=== PATIENT | female | born 1980 | race Caucasian/White ===

== ENCOUNTER 2016-11-16 11:37 | Inpatient (IN) | payer OTHER ==
[2016-11-16] VITALS (12 sets, daily range): BP systolic 104–139; BP diastolic 57–74; PULSE 65–109; RESP 16–25; O2SAT 98–100
[~2016-11-16] VITALS: Ht 172.7 cm; Wt 61.4 kg
[2016-11-16] MEDS ORDERED: 0.9% Sodium Chloride 1,000 ML IV ONE (11:52)
[2016-11-16] MEDS ORDERED: Ketorolac 30 mg/mL 2 mL Inj IM ONE (11:55)
[2016-11-16] MEDS ORDERED: Ondansetron 2 mg/mL 2 mL Inj IVPUSH ONE (11:55)
--- NOTE | 2016-11-16 11:59 | ED.REPORT ---
HPI-Abd Pain F Under 40 Date of Service Nov 16, 2016 ED Provider: Trevor Taveras PA-C Jacy is an otherwise healthy 36-year-old female presents with chief complaint of right lower quadrant pain. She states the pain began yesterday around her bellybutton, and has migrated to her right lower quadrant today, becoming significantly more severe. Admits anorexia, nausea, chills. States there is a chance she is . Denies fevers, vomiting, diarrhea, melena, hematochezia , constipation, hematuria, frequency, urgency, dysuria, vaginal bleeding/ discharge. Denies history of appendectomy. States has been more than 24 hours since she last ate solid food and admits to consuming 8 ounces of water at 0730 this morning. Nursing Notes Stated Complaint: STOMACH PAIN Chief Complaint: Female Abdominal Pain Nursing Notes Reviewed: Yes Allergies: Coded Allergies: Penicillins (Unverified Allergy, Unknown, mom and brother are both allergic, 11/16/16) gluten (Verified Adverse Reaction, Intermediate, Abdominal Pain, 11/16/16) Scheduled Ascorbic Acid (Vitamin C) 1,000 Mg Tab.chew 1,000 MG PO DAILY Multivitamin (Once Daily) 1 Each Tablet 1 EACH PO DAILY General Time Seen by MD: 11:43 Chief Complaint Abdominal pain Past Medical History Past Medical History Denies Review of Systems Negative unless stated otherwise in history of present illness Physical Exam General: Uncomfortable appearing, well developed, well nourished, mild to moderate distress. Head: Atraumatic, normocephalic. Eyes: No scleral icterus or injection. No discharge. Vision grossly intact. ENT: Voice clear, hearing grossly intact. Respiratory: Regular rate and rhythm. Breath sounds present, clear to auscultation and equal bilaterally. No respiratory distress. No increased work of breathing, speaks in complete sentences. Cardiovascular: Mildly tachycardic with regular rhythm, without murmur, gallop or rub. No pedal edema. Gastrointestinal: Abdomen flat and normal to inspection. Significant right lower quadrant tenderness with rebound. Positive Rovsing sign in right upper quadrant. Mild psoas and obturator sign Skin: Warm and dry. Neurological: Grossly nonfocal. Psychological: Alert and oriented. Speech appropriate, linear and logical. Behavior appropriate. Initial Vital Signs Vital Signs (First) Date Time Temp Pulse Resp B/P Pulse Ox O2 Delivery O2 Flow Rate FiO2 11/16/16 11:40 37.2 109 18 128/74 100 Room Air Interpretation & Diagnostics Interpretation & Diagnostics: Leukocytosis at 24.8 with a left shift. Mild anemia PROCEDURE: US APPENDIX INDICATIONS: right lower quadrant pain TECHNIQUE: Real-time focused scanning was performed of the abdomen with attention to the appendix, with image documentation. COMPARISON: None. FINDINGS: Appendix visualization: Well-visualized appendix. Appendix measurements: 14.8 mm Associated findings: Echogenic fat: Present. Appendiceal compressibility: Absent. Appendicoliths: Absent. Nearby free fluid: Present. Lymphadenopathy: Absent. Tenderness on exam: Is apparent IMPRESSION: Findings consistent with acute appendicitis. Lab Results Interpretation Result Diagram: 11/16/16 1230 11/16/16 1230 Test 11/16/16 12:30 11/16/16 12:32 11/16/16 13:14 11/16/16 15:01 White Blood Count 24.8th/mm3 (3.8-10.1) Red Blood Count 4.13mil/mm3 (3.90-5.20) Hemoglobin 11.4g/dL (12.0-15.6) Hematocrit 34.3% (35.0-46.0) Mean Corpuscular Volume 83.1fL (81-100) Mean Corpuscular Hemoglobin 27.6pg (27.0-35.0) Mean Corpuscular Hemoglobin Concent 33.2% (32.0-37.0) Red Cell Distribution Width 15.1% (12.3-15.4) Platelet Count 288bil/L (150-400) Neutrophils (%) (Auto) 85.7% (40-74) Lymphocytes (%) (Auto) 4.7% (14-46) Monocytes (%) (Auto) 9.1% (4-12) Eosinophils (%) (Auto) 0% (0-5) Basophils (%) (Auto) 0.1% (0-3) Sodium Level 132mEq/L (134-144) Potassium Level 4.0mEq/L (3.5-5.2) Chloride Level 95mEq/L (97-108) Carbon Dioxide Level 24mmol/L (18-29) Blood Urea Nitrogen 6mg/dL (6-20) Creatinine 0.56mg/dL (0.57-1.00) Estimat Glomerular Filtration Rate 176mL/min (>59) Glucose Level 127mg/dL (60-99) Lactic Acid Level 1.4mmol/L (0.4-2.0) Calcium Level 9.4mg/dL (8.5-10.1) Total Bilirubin 0.6mg/dL (0.0-1.2) Aspartate Amino Transf (AST/SGOT) 17U/L (0-50) Alanine Aminotransferase (ALT/SGPT) 9U/L (0-32) Alkaline Phosphatase 74U/L (25-150) Total Protein 7.5g/dL (6.4-8.4) Albumin 4.4g/dL (3.4-5.0) HCG Beta Subunit < 0.500mIU/mL Hold Gamino Top Tube Received (Received) Hold Urine Received (Received) CT Abd / Pelvis Interpretation PROCEDURE: CT ABDOMEN AND PELVIS WITH CONTRAST ([id number]) INDICATIONS: right lower quadrant pain IMPRESSION: Definite appendicitis with periappendiceal fluid and no free air seen. Free fluid in cul-de-sac and pelvis Question of abscess pelvis which is abnormal ovarian cysts or endometriomas. US Focused non-OB Pelvis PROCEDURE: US PELVIC SONOGRAM + TRANSVAGINAL SONOGRAM INDICATIONS: possible tuboovarian abscess vs appendicitis IMPRESSION: 1. Uterus multiple fibroids is considered normal. 2. Abnormal and enlarged ovaries with complex cysts some of which have a homogeneous echo pattern suspicious for endometriosis. In addition in the right adnexa is a complex mass possibly an endometrioma. Differential for this exam clinical history would be abscess. Endometriosis is suspected an MRI to evaluate for lesions scattered throughout the pelvis may be useful. If tubo-ovarian abscess is suspected clinically then a CT scan may be useful to evaluate for possible percutaneous drainage. Re-Eval/Medical Decision Re-Evaluation/Progress : Time of Eval: 12:57 Re-Evaluation/Progress Note: Patient reports pain is improved at 6/10. She does not wish to have more pain medication. Consultation #1: Referral / Consult Name: Mack Galo MD Requested Call at: 12:57 Call Returned at: 12:57 Open Shank Coverer: Will see patient Consultation #2: Referral / Consult Name: Mack Galo MD Consulted With: Surgeon Call Returned at: 13:22 Note: Dr. Galo met with and examined the patient. He is mildly concerned about PID due to the very high white count. Requested that I ask for a WASTEWATER ANALYST LAB ANALYST consult. Consultation #3: Referral / Consult Name: Larry Buchanan MD Requested Call at: 13:23 Call Returned at: 13:45 Open Shank Coverer: Will see patient Consultation #4: Referral / Consult Name: Deloris Koenig MD Call Returned at: 16:36 Note: Inform Dr. Al of preliminary ultrasound of result showing right ovarian abscess and appendicitis. She asked that I inform Dr. Galo. States that she has replaced the patient on antibiotics and no change. Consultation #5: Referral / Consult Name: Mack Galo MD Consulted With: Surgeon Call Returned at: 16:37 Open Shank Coverer: Will see patient Note: Informed Dr. Galo of preliminary ultrasound results. He will see the patient after his current procedure. Consultation #6: Referral / Consult Name: Mack Galo MD Consulted With: Surgeon Call Returned at: 17:53 Note: Dr. Bautista reviewed ultrasound results. Finds them equivocal for appendicitis. Requests that I order a CT abdomen and pelvis with and without contrast. Consultation #7: Referral / Consult Name: Mack Galo MD Consulted With: Surgeon Note: CT results indicate appendicitis. Dr. Galo will admit the patient to surgery Discharge & Departure Primary Impression: Appendicitis Appendicitis type: acute appendicitis Acute appendicitis type: unspecified acute appendicitis type Qualified Code: K35.80 - Unspecified acute appendicitis Disposition: ADMITTED TO HOSPITAL EDSupervising Provider for APC: Jose Suárez MD, Seth PA-C Nov 16, 2016 11:59
[2016-11-16 12:37] LABS: BASOPHILS % (AUTO) 0.1 % (0-3); EOSINOPHILS % (AUTO) 0 % (0-5); MONOCYTES % (AUTO) 9.1 % (4-12); Mean Corpuscular Hemoglobin 27.6 pg (27.0-35.0); Mean Corpuscular Volume 83.1 fL (81-100); NEUTROPHILS % (AUTO) 85.7 % (40-74); Platelet Count 288 bil/L (150-400)
[2016-11-16] MEDS ORDERED: MULT-666 PO (13:22)
[2016-11-16] MEDS ORDERED: ASCO100089 PO (13:22)
--- NOTE | 2016-11-16 14:16 | HP ---
[address] [address] HISTORY AND PHYSICAL PATIENT: DARREN DIAZ : 1980 MR#: [id number] ADMIT: 11/16/2016 JOB ID: [id number] CHIEF COMPLAINT/IDENTIFICATION: I have been asked by Trevor Taveras to see this woman in consultation regarding possible appendicitis. HISTORY OF PRESENT ILLNESS: The patient reports abdominal pain for approximately just under 24 hours beginning around her umbilicus and migrating down her right lower quadrant with anorexia, nausea, chills. She denies vaginal discharge of any significance, dysuria. PAST MEDICAL HISTORY: Unremarkable. MEDICATIONS: None. ALLERGIES: PENICILLIN, VITAMINS. SOCIAL HISTORY: , negative tobacco. Negative daily alcohol. FAMILY HISTORY/REVIEW OF SYSTEMS: Negative. PHYSICAL EXAMINATION: Slender woman, looking uncomfortable but in no acute distress. Temperature is recorded at 37.2, pulse is 109, blood pressure is 128/74. She is in the room with her . Neck is supple. No cervical adenopathy. Breasts are not examined. Lungs are clear. Heart sounds are regular. She has a right-sided tenderness to palpation midway between the pubis and McBurney point, no tenderness on the left. LABORATORY DATA: Her white count is 24.8, her hematocrit is 34.3. Chemistries are slightly abnormal with a sodium of 132 and a chloride of 95. Her glucose is 127. Lactic acid is 1.4. IMAGING: She has had an appendix ultrasound with a preliminary reading of complete visualization of the appendix as a noncompressible tube 14+ mm in diameter without an appendicolith. No mention is made of fluid or other adenopathy. I have reviewed the worksheet and the ultrasound films themselves and we are waiting official report. IMPRESSION AND PLAN: A 36-year-old healthy woman with possible appendicitis. Her history is most consistent with appendicitis but her white blood cell count is fairly high for appendicitis. I am concerned about the possible diagnosis of pelvic inflammatory disease or tubo-ovarian abscess. Having considered the options what I would like to do is have ABSTRACT WRITER see her including performance of a bimanual examination as well as await the official ultrasound reading.
--- NOTE | 2016-11-16 14:33 | DRSVH ---
PROCEDURE: US APPENDIX INDICATIONS: right lower quadrant pain TECHNIQUE: Real-time focused scanning was performed of the abdomen with attention to the appendix, with image do cumentation. COMPARISON: None. FINDINGS: Appendix visualization: Well-visualized appendix. Appendix measurements: 14.8 mm Associated findings: Echogenic fat: Present. Appendiceal compressibility: Absent. Appendicoliths: Absent. Nearby free fluid: Present. Lymphadenopathy: Absent. Tenderness on exam: Is apparent IMPRESSION: Findings consistent with acute appendicitis. Trevor Taveras given results by the plate stacker hand at 1300 hrs. 11/16/2016 Dictated by: Jere MONTES DE OCA Interpreted: Marina Castaneda MD on 11/16/2016 at 14:31 Transcribed by: TAYLER on 11/16/2016 at 14:33 Approved by: Marina Castaneda MD, PhD on 11/16/2016 at 16:58
[2016-11-16] MEDS ORDERED: Cefotetan Inj 2,000 MG in IV Premix 1 EACH IV SCH (16:19)
--- NOTE | 2016-11-16 16:43 | CONS ---
[address] [address] CONSULTATION REPORT PATIENT: DARREN DIAZ : 1980 MR#: [id number] ADMIT: 11/16/2016 JOB ID: [id number] DATE OF SERVICE: 11/16/2016 REASON FOR CONSULTATION: Abdominal pain. Possible appendicitis. To rule out possible pelvic inflammatory disease. HISTORY OF PRESENTING ILLNESS: This is a [id number]-[id number] zero para zero with last menstrual period of October 31, 2016, presented with one and half a day history of abdominal pain that started at the mid abdomen, around the umbilicus and the lower abdomen, and then the pain moved to the right lower quadrant earlier this morning. History of nausea. No vomiting. Last bowel movement was last night. No history of constipation. No history of fever. The pain started gradually to increase to a 7/10 at its max. Now patient rates the pain to be 5/10 after receiving IV pain medications. The patient denies history of pelvic infection and no history of gonorrhea, chlamydia, or vaginitis. No history of vaginal discharge. No urinary symptoms. Not on control. GYNECOLOGIC HISTORY: Menarche at age 14. Menstrual cycle was irregular up to the last one and half year when she switched to gluten free diet. Now her menses are regular every month, last for a week, with mild dysmenorrhea resolved with [id number]-[id number] pain medications. Last Pap smear was one and half years ago and it was within normal limits. No history of abnormal Pap smears. No history of STI. PAST MEDICAL HISTORY: Noncontributory. PAST SURGICAL HISTORY: Negative. SOCIAL HISTORY: Denies smoking, alcohol, or illicit drug abuse. FAMILY HISTORY: Mother is healthy. Father with a history of dyslipidemia, possible hypertension. Brother is healthy. Cancer: Great grandfather unknown primary cancer. ALLERGY: 1. Penicillin for possible allergy, as mother and brother are both allergic to penicillin and they react with hives. The patient never had antibiotics before. 2. Gluten. No confirmation test was done. The patient avoids gluten by choice with improvement in symptoms. MEDICATIONS: Ibuprofen p.r.n. for pain. PHYSICAL EXAMINATION: Vital signs: Temperature 37.8 degrees centigrade. Patient reports a T-max of 98.4 at home. Pulse 109 on presentation and now down to 95. Respiratory rate 20. Blood pressure 128/74 at presentation and now 104/61. Pulse oximetry 100% on room air. General: Alert. Oriented to time, place, and person. Head: Normocephalic, atraumatic. Eyes: Grossly normal. ENT: Oral membranes moist. Neck: Supple. Chest: Equal air entry bilaterally. No added sounds. Cardiovascular: S1 plus S2 plus zero. Regular rate and rhythm. Abdomen: Tubes in place. Soft, with localized tenderness in the right lower quadrant. No guarding, no rigidity. Pelvic: External genitalia normal. Normal urethra and glands. Normal vagina. Cervix with mild erythema and some nabothian glands. Normal appearance of discharge. Bimanual exam: No cervical motion tenderness. No uterine tenderness. Positive right adnexal region tenderness. Tenderness more evident by abdominal palpation then pelvic palpation. No palpable masses. The left adnexal region: No tenderness and no palpable masses. Lower extremities: Palpable pulse bilaterally and no edema. LABORATORIES: White blood cells 24.8, hemoglobin 11.4, hematocrit 34.3. Neutrophils 85.7%. Sodium 132, potassium 40, chloride 95, bicarb 24, BUN 6, creatinine 0.56, and glucose 127. Lactic acid 1.4. Calcium 9.4, AST 17, ALT 9, alkaline phosphatase 74. Beta hCG pending. IMAGING: Abdominal ultrasound was performed with findings consistent with acute appendicitis. ASSESSMENT: This is a 36-year-old G0 with 1-1/2 day history of right lower quadrant pain. PID is unlikely but cannot be completely ruled out. PLAN: Pelvic ultrasound ordered and will start treatment for possible PID pending GC and chlamydia swabs and pending test. Impression and plan was discussed with Dr. Galo, who is admitting the patient for possible appendicitis, and will be available for consult as needed. MARTI
--- NOTE | 2016-11-16 17:40 | DRSVH ---
PROCEDURE: US PELVIC SONOGRAM + TRANSVAGINAL SONOGRAM INDICATIONS: possible tuboovarian abscess vs appendicitis TECHNIQUE: Real-time scanning was performed of the pelvic organs, with image documentation. Additional endovagi nal scanning was necessary due to incomplete visualization of the adnexal and endometrial structures by transabdominal scanning. COMPARISON: None. FINDINGS: Transabdominal scanning: Limited scanning through the kidneys shows no hydronephrosis. No pathologi c free abdominal or pelvic fluid. Endovaginal scanning: Uterus: Uterus is normal in size at 9.4 x 5.6 x 4.6 cm. The endometrium measures 14 mm in combined thickness. There are at least 3 fibroids. One in the anterior aspect of the midbody and the subseros al area measures 26 x 24 x 25 mm. A second on the right anterior aspect of the uterus in the subseros al area measures 32 x 23 x 20 mm. A third in the posterior mid body myometrium is 9 x 6 x 6 mm. Ovaries: The right ovary is enlarged and measures 62 x 43 x 25 mm. This is secondary to multiple cyst s largest measures 26 x 17 x 23 mm. In addition in the right adnexa is a complex lesion measuring 65 x 61 x 42 mm with a homogeneous echo pattern is suspicious for endometrioma. The left ovary is enlarged and measures 57 x 45 x 36 mm with multiple complex cysts. Several areas in the region of the left ovary and a very homogeneous echotexture suspicious for endometrioma as well. There is a moderate amount of free fluid in the cul-de-sac. This has a complex appearance to it sugge sting possible blood or infection. IMPRESSION: 1. Uterus multiple fibroids is considered normal. 2. Abnormal and enlarged ovaries with complex cysts some of which have a homogeneous echo pattern naresh picious for endometriosis. In addition in the right adnexa is a complex mass possibly an endometrioma . Differential for this exam clinical history would be abscess. Endometriosis is suspected an MRI to evaluate for lesions scattered throughout the pelvis may be useful. If tubo-ovarian abscess is suspected clinically then a CT scan may be useful to evaluate for possible percutaneous drainage. Dictated by: Wesley Person M.D. on 11/16/2016 at 17:34 Approved by: Wesley Person M.D. on 11/16/2016 at 17:38
[2016-11-16] MEDS ORDERED: Iohexol 300 mg/mL 30 mL Inj PO ONE (17:50)
--- NOTE | 2016-11-16 20:11 | DRSVH ---
PROCEDURE: CT ABDOMEN AND PELVIS WITH CONTRAST (PNL-7102) INDICATIONS: right lower quadrant pain TECHNIQUE: After the administration of oral and intravenous contrast, 5 mm thick sections acquired from the diap hragms to the symphysis. 5 mm thick coronal and sagittal reformats were performed. For radiation do se reduction, the following was used: automated exposure control, adjustment of mA and/or kV accordi ng to patient size. COMPARISON: None. FINDINGS: Image quality: Excellent. ABDOMEN: Lung bases: Lung bases are clear. Heart size is normal. Solid organs: Liver and spleen are normal in size and enhancement. Gallbladder is within normal forbes its.. Biliary system is non-dilated. Pancreas enhances normally. No adrenal nodules. Kidneys are normal in size and enhancement, without hydronephrosis. Peritoneum and bowel: Stomach, small bowel, and colon loops are normal in caliber and wall thickness . The appendix is definitely abnormal with multiple stones, enlargement, enhancement, parie appendic eal stranding and fluid some free fluid in the paracolic gutter and retrocecal area. There is also fl uid extending along the appendix in from its tip down into the cul-de-sac is free fluid. There are lo culated fluid collections. Some of these are prominent ovarian cystic structures seen on ultrasound. The troublesome. As on series 2 image 69. This fluid collection of approximately 5.3 cm size is poten tially abscess or complex ovarian cyst or endometrioma. Nodes and vessels: No retroperitoneal or mesenteric adenopathy. Aorta and inferior vena cava are no rmal in caliber. Miscellaneous: No ventral hernias. PELVIS: Genitourinary: Bladder wall thickness is normal. Miscellaneous: No inguinal hernias or adenopathy. Bones: No suspicious bony lesions. No vertebral body compression fractures. IMPRESSION: Definite appendicitis with periappendiceal fluid and no free air seen. Free fluid in cul-de-sac and pelvis Question of abscess pelvis which is abnormal ovarian cysts or endometriomas. Dictated by: Wesley Person M.D. on 11/16/2016 at 20:02 Approved by: Wesley Person M.D. on 11/16/2016 at 20:10
[2016-11-16] MEDS ORDERED: Cefotetan Inj 2,000 MG in IV Premix 1 EACH IV ONE (20:25)
[2016-11-16] MEDS ORDERED: Lactated Ringer's 500 ML IV PRN (20:34)
[2016-11-16] MEDS ORDERED: Lactated Ringer's 1,000 ML IV SCH (20:34)
--- NOTE | 2016-11-16 20:34 | PCM.HPANE ---
Patient Data Surgeon Admitting Provider: Attending Provider: Primary Care Physician:Candy Other Provider: Reason for Visit Stomach Pain Ht/WT & BMI Height (Feet): 5 Height (Inches): 8 Weight (Kilograms): 61.36 Body Mass Index Allergies Coded Allergies: Penicillins (Unverified Allergy, Unknown, mom and brother are both allergic, 11/16/16) gluten (Verified Adverse Reaction, Intermediate, Abdominal Pain, 11/16/16) Past Anesthesia History Anesthesia History: Denies:: Anesthesia Reactions Diabetes History Hx Diabetes?: No MRSA MRSA: No Medications Hypertension Medication: No Home Meds Incl Beta Terrell: No Reported Medications Ascorbic Acid (Vitamin C)1,000 Mg Tab.chew1,000 Mg PO DAILY Ref 0 11/16/16 Multivitamin (Once Daily)1 Each Tablet1 Each PO DAILY 11/16/16 History History of ENT Problems?: No Hx of Heart Problems?: No Cardiovascular History: Denies:: Congestive Heart Failure Hypertension Hx of Respiratory Problem?: No Respiratory History: Denies:: Tuberculosis Hx Neurologic Problems?: No Hx of GI Problems?: No Hx of Problems?: No Female Hx: Denies:: Currently Endometriosis Pelvic Inflammatory Problems with Breasts? Hx Musculoskeletal Problems?: No Hx of Psycho/Social Problems?: No Hx Surgeries?: No Hx Any Other Health Problems?: No Other History: Denies:: Cancer Hospitalization Thyroid Disease Hx Diabetes: No Hx Alcohol Use: NoHx Substance Use: NoHave You Smoked inLast 12 mo: No Stop/Bang Treated for Sleep Apnea?: No Do You Have a CPAP Machine?: No S-Snoring: Do You Snore Loudly: No T-Tired: feel tired, fatigued: No O-Obsered: Observed not breath: No P-Blood Pressure: treated: No B- Body Mass Index > 35 kg/m2: No A- Age over 50: No N- Neck Large Circumference: No G- Gender Male: No PATRICIA Total Score: 0 PATRICIA Risk Assessment: Low Risk, <3 Yes Risk Assessment Category Category 1A: Patient has history of documented sleep apnea, and HAS NOT received any narcotic, sedative or anesthesia administration during this stay. Category 1B: Patient has history of documented sleep apnea, and HAS received any narcotic , sedative or anesthesia administration during this stay Category 2: Patient has SUSPECTED Obstructive Sleep Apnea, and HAS received any narcotic , sedative or anesthesia administration during this stay. Category 3: Patient has SUSPECTED Obstructive Sleep Apnea and HAS NOT received narcotic, sedative or anesthesia administration during this stay. Category 4: Outpatient in Procedural Areas with known sleep apnea or who screen positive for High Risk via the STOP/BANG questionnaire. Exam Exam Vital Signs Vital Signs Date Time Temp Pulse Resp B/P Pulse Ox O2 Delivery O2 Flow Rate FiO2 11/16/16 20:29 37.9 101 20 129/73 100 Room Air 11/16/16 16:25 37.9 65 20 115/69 99 Room Air 11/16/16 14:01 37.8 95 20 104/61 100 Room Air General Appearance: Oriented X3 HEENT/AIRWAY: MP 2 Lungs: Normal Air Movement Heart: Regular Rate/Rhythm Meds/Labs/Diagnostics Admission Meds Current Medications Sodium Chloride (Normal Saline) 1,000 ml @ 0 mls/hr Q0M ONCE IV Last administered on 11/16/16 12:10; Start 11/16/16 at 11:52; Stop 11/16/16 at 11:54; Status DC Ondansetron HCl (Zofran Inj) 8 mg ONCE ONCE IVPUSH Last administered on 12:10; Start 11/16/16 at 11:55; Stop 11/16/16 at 11:56; Status DC Ketorolac Tromethamine 30 mg 30 mg ONCE ONCE IVPUSH Last administered on 12:10; Start 11/16/16 at 12:00; Stop 11/16/16 at 12:01; Status DC Cefotetan Disodium/Dextrose/ Premix (Cefotan Inj/IV Premix) 50 ml @ 100 mls/hr Q12 IV Last administered on 11/16/16 16:36; Start 11/16/16 at 16:19 Iohexol (Omnipaque-300 Inj) 9,000 mg ONCE ONCE PO Last administered on 18:40; Start 11/16/16 at 17:50; Stop 11/16/16 at 17:52; Status DC Labs Test 11/16/16 12:30 11/16/16 12:32 11/16/16 13:14 11/16/16 15:01 White Blood Count 24.8th/mm3 (3.8-10.1) Red Blood Count 4.13mil/mm3 (3.90-5.20) Hemoglobin 11.4g/dL (12.0-15.6) Hematocrit 34.3% (35.0-46.0) Mean Corpuscular Volume 83.1fL (81-100) Mean Corpuscular Hemoglobin 27.6pg (27.0-35.0) Mean Corpuscular Hemoglobin Concent 33.2% (32.0-37.0) Red Cell Distribution Width 15.1% (12.3-15.4) Platelet Count 288bil/L (150-400) Neutrophils (%) (Auto) 85.7% (40-74) Lymphocytes (%) (Auto) 4.7% (14-46) Monocytes (%) (Auto) 9.1% (4-12) Eosinophils (%) (Auto) 0% (0-5) Basophils (%) (Auto) 0.1% (0-3) Sodium Level 132mEq/L (134-144) Potassium Level 4.0mEq/L (3.5-5.2) Chloride Level 95mEq/L (97-108) Carbon Dioxide Level 24mmol/L (18-29) Blood Urea Nitrogen 6mg/dL (6-20) Creatinine 0.56mg/dL (0.57-1.00) Estimat Glomerular Filtration Rate 176mL/min (>59) Glucose Level 127mg/dL (60-99) Lactic Acid Level 1.4mmol/L (0.4-2.0) Calcium Level 9.4mg/dL (8.5-10.1) Total Bilirubin 0.6mg/dL (0.0-1.2) Aspartate Amino Transf (AST/SGOT) 17U/L (0-50) Alanine Aminotransferase (ALT/SGPT) 9U/L (0-32) Alkaline Phosphatase 74U/L (25-150) Total Protein 7.5g/dL (6.4-8.4) Albumin 4.4g/dL (3.4-5.0) HCG Beta Subunit < 0.500mIU/mL Hold Gamino Top Tube Received (Received) Hold Urine Received (Received) Plan Impression Patient chart reviewed, patient interviewed and anesthestic plan with risks, benefits, and alternatives discussed, and informed consent obtained. ASA Physical Status: ASA1 Plus Emergency Anesthetic Plan: GA Bene/Risks/Altern/Consents: Yes HP Complete Prior to Induction: Yes Isaias Farah MD Nov 16, 2016 20:34
[2016-11-16] MEDS ORDERED: fentaNYL-PF 50 mCg/mL 2 mL Inj IVPUSH PRN (20:35)
[2016-11-16] MEDS ORDERED: MetoCLOpramide 5 mg/mL 2 mL Inj IVPUSH PRN (20:35)
[2016-11-16] MEDS ORDERED: Ondansetron 2 mg/mL 2 mL Inj IVPUSH PRN ×2 (20:35→22:05)
[2016-11-16] MEDS ORDERED: Phenylephrine 10,000 mCg/mL Inj IVPUSH PRN (20:35)
[2016-11-16] MEDS ORDERED: HYDROmorphone 1 mg/mL Inj IVPUSH PRN (20:35)
[2016-11-16] MEDS ORDERED: EPHEDrine Sulfate 50 mg/mL Inj IVPUSH PRN (20:35)
[2016-11-16] MEDS ORDERED: Dexamethasone 4 mg/mL Inj IVPUSH PRN (20:35)
[2016-11-16] MEDS ORDERED: CEFOTETAN IV ONE (20:48)
[2016-11-16] MEDS ORDERED: Bupivacaine 0.5% 50 mL Inj INFILTRATE ONE (21:23)
[2016-11-16] MEDS ORDERED: HYDROmorphone 0.5 mg/0.5 mL iSecure Syringe IV PRN (22:05)
[2016-11-16] MEDS ORDERED: diphenhydrAMINE 25 mg Capsule PO PRN (22:05)
--- NOTE | 2016-11-16 22:12 | PCM.ANEP1 ---
Post Anesthesia Phase 1 PACU Phase 1 Assessment Vital Signs Vital Signs Date Time Temp Pulse Resp B/P Pulse Ox O2 Delivery O2 Flow Rate FiO2 11/16/16 22:10 91 20 130/67 100 Simple Mask 8 11/16/16 22:05 77 20 135/68 100 Simple Mask 8 11/16/16 22:02 37.5 92 25 139/71 100 Simple Mask 8 11/16/16 20:29 37.9 101 20 129/73 100 Room Air 11/16/16 16:25 37.9 65 20 115/69 99 Room Air Anesthetic Administered: GA Level of Alertness: Awake, talking Pain: No Nausea or Vomiting: No Oxygen Delivery: Room Air Lungs: Normal Air Movement Isaias Farah MD Nov 16, 2016 22:12
--- NOTE | 2016-11-16 22:13 | PCM.ANEP2 ---
Post Anesthesia Evaluation ASA/CMS Post Anesthesia VS in Patient's Normal Range?: Yes Resp Stable; Airway Patent?: Yes CV Function & Hydration Stable: Yes Mental Status Recovered?: Yes Pain control Satisfactory?: Yes N/V Control Satisfactory?: Yes Isaias Farah MD Nov 16, 2016 22:12
--- NOTE | 2016-11-17 00:58 | NUR ---
Admit to room 246-2 received report from REVERSE LOGISTICS ANALYST BREONNA HARRISON approximately at 2225. pt arrived to room at 2240 via rney with belongings , and family at bedside. pt transferred self from rjermyn to bed by sliding. pt awake; alert and oriented X3. Pt was on 2L O2 on arrival with SPO2 99%. Titrated O2 to 1L with sat 95%. IV saline locked on arrival by REVERSE LOGISTICS ANALYST and no ordered IV fluid. pt tolerating well PO fluid. reported abdominal pain 5/10. administered 5mg oxycodone, it was effective. Dressing C/D/I. oriented pt to room, bed, and call light. will continue to monitor.
--- NOTE | 2016-11-17 01:23 | OP ---
[address] [address] OPERATIVE REPORT PATIENT: DARREN DIAZ : 1980 MR#: [id number] ADMIT: 11/16/2016 JOB ID: [id number] DATE OF SURGERY: 11/16/2016 PREOPERATIVE DIAGNOSIS(ES): 1. Appendicitis. 2. Ovarian cyst. POSTOPERATIVE DIAGNOSIS(ES): 1. Appendicitis. 2. Ovarian cysts with endometrial implants and endometriosis. SURGEON: Mack Galo MD. PROCEDURE: 1. Laparoscopic appendectomy. 2. Biopsy of endometrial implants. INDICATIONS: This is a 36-year-old woman who presented with a one day history of abdominal pain, right lower quadrant tenderness, white count of 25,000 and a radiologic picture of appendicitis versus tubo-ovarian abscess by ultrasound, clarified by CT with clear acute appendicitis and ovarian pathology. She was seen preoperatively by both myself and by FIELD INSPECTOR. She is brought to the operating room for planned laparoscopic appendectomy. She knows that the sewing department supervisor will be present to look at her ovarian pathology, but we have had a discussion that we will plan to simply proceed with appendectomy and only consider drainage of any gynecologic infection that we find, rather than any resection that would be reserved for a separate procedure after she had the opportunity to have a discussion with the sewing department supervisor. FINDINGS: 1. Acute appendicitis without perforation, but with very gangrenous appendicitis in some areas of the appendix. 2. The patient had what appeared to be fairly fresh endometrial implants in the pelvis, in bilateral left and right lower quadrants, and a fair amount in the right upper quadrant with some in the left upper quadrant. 3. She had bilateral ovarian cysts, right greater than left, with the right appearing to be complex, bilobed, and with a central area that had ruptured with chocolate-colored material lining the wall. Dr. Buchanan from Gynecology was present and observed the procedure. 4. Pictures were taken, but there was a problem with the process there and we; therefore, have no photos. DESCRIPTION OF PROCEDURE: The patient was brought to the operating room. General anesthetic was administered. Surgical time-out was followed. SCOAP protocol was followed. She received additional 2 g cefotetan IV. After having the abdomen prepped and draped I sterile fashion and our time-out, we began with local anesthetic and then obtained access with a periumbilical incision and a Veress needle. Optical trocar was placed and we immediately saw a minimal amount of fluid in the pelvis, but brown implants consistent with endometriosis scattered about the pelvis. We inspected all four quadrants and saw that there was staining on the greater omentum with implants on the colon. These all seemed fairly fresh without a great deal of inflammation. We were able to pull some off and sent these for biopsy, labeled as endometrial implants. We turned our attention to the appendix early in the procedure, and identified that it was indeed inflamed but not perforated. We were able to make a window at the base and used the stapler to divide it with the endoscopic stapler. We then took the appendiceal mesentery right at the edge of the appendix and elevated the appendix up. The appendix was markedly thickened and noncompressible and had some areas of gangrene that had some controlled leakage of fluid. The specimen was freed up and then placed in a bag and removed without wound contamination. Dr. Buchanan was present at this point in the operation and we inspected the right ovary and the left ovary. These were quite large with ovarian cysts and what appeared to be a ruptured endometrioma on the right and on the left an enlarged ovarian cyst. Based on our preoperative discussion, we simply elected to now irrigate out any blood and soft material that we could. At this point, as we were removing our ports we found out that the computer that was attached our camera had not processed the photos we had taken of the endometrial implants and the ovaries. Unfortunately, we had no way of recapturing this information. We now proceeded to close the abdomen with 0-Vicryl at the fascia of the larger incision and subcuticular Monocryl otherwise. The patient tolerated the procedure well. At the time of this dictation is awakened from anesthesia. She will be kept on 24 hours of postoperative antibiotics, likely discharged on Sunday. I had a discussion with the regarding the findings of acute appendicitis and second finding of the endometriosis. Dr. Buchanan will speak with the patient and her regarding these implications and any further treatment tomorrow or Sunday.
[2016-11-17 02:51] VITALS: BP 104/61; PULSE 93; RESP 16; O2SAT 99
[2016-11-17 07:37] LABS: BASOPHILS % (AUTO) 0 % (0-3); EOSINOPHILS % (AUTO) 0 % (0-5); MONOCYTES % (AUTO) 6.1 % (4-12); Mean Corpuscular Hemoglobin 27.4 pg (27.0-35.0); Mean Corpuscular Volume 83.8 fL (81-100); NEUTROPHILS % (AUTO) 90.7 % (40-74); Platelet Count 268 bil/L (150-400)
[2016-11-17 07:43] VITALS: BP 115/64; PULSE 92; RESP 14; O2SAT 96
[2016-11-17 09:23] VITALS: PULSE 100; RESP 16; O2SAT 97
[2016-11-17] MEDS ORDERED: 0.9% Sodium Chloride 250 ML ONE (09:28)
[2016-11-17] MEDS: Cefotetan Inj 2,000 MG in IV Premix 1 EACH IV SCH ×2 (09:33→19:50)
[2016-11-17] MEDS ORDERED: fentaNYL-PF 50 mCg/mL 2 mL Inj ONE (11:39)
--- NOTE | 2016-11-17 12:08 | PCM.PNSURG ---
Subjective Date of Service: Nov 17, 2016 Visit Information: Reason for Visit Appendicitis Surgery/Surgery Date Post-Op Day #1 Date of Admission: Nov 16, 2016 at 21:03 Hospital Day # Subjective: Eating a few bites of muffin and fruit, good appetite. No nausea or vomiting. Passing flatus but has not had a bowel movement. Ambulatory in the room. Pain well controlled with oral analgesic. Postop General: No Complaints Gastrointestinal: Good Appetite, Tolerating Oral Feedings, No N/V, Passing Flatus Pain Management: PO Postop Activity: Ambulating in Room Only Objective Vital Sign- Last 8 Hours Date Time Temp Pulse Resp B/P Pulse Ox O2 Delivery O2 Flow Rate FiO2 11/17/16 09:23 100 16 97 Room Air 11/17/16 07:43 36.7 92 14 115/64 96 Room Air Intake and Output- Last 8 Hour 11/17/16 Cumulative From/Thru 07:00 11/16/16 11:40 - 11/17/16 06:27 Intake Total 650 ml 1350 ml Output Total 525 ml 525 ml Balance 125 ml 825 ml Intake Oral 650 ml 650 ml IV Total 700 ml Output Urine Total 525 ml 525 ml # Bowel Movements 0 0 General: Alert, Cooperative, No Acute Distress Lungs: Clear to Auscultation (poor effort) Heart: Regular Rate/Rhythm, No Murmurs/Rubs/Gallops Abdomen: Soft, Appropriately tender, Non-distended SURGICAL WOUND : Wound General Appearence: No Erythema, Wound under dressing Extremities: Thigh&Calf Soft/Nontender Neuro: Normal Speech Catheters: None Result Diagram: 11/17/16 0710 11/16/16 1230 Assessment & Plan Impression 1. Gangrenous appendicitis. POD #1, nontoxic, progressing well. 2. Bilateral ovarian cysts with endometriosis and endometrial implants. Problems: Plan 1. Advance diet as tolerated. 2. May shower. 3. Continue IV antibiotics. Pain Management: Oxycodone VTE Prophylaxis: Domingo Joe PA-C Nov 17, 2016 12:08
[2016-11-17 13:09] VITALS: BP 100/51; PULSE 97; RESP 16; O2SAT 95
--- NOTE | 2016-11-17 14:56 | NUR ---
Social Work Note - Screening: D/A: The Pt is a 36 y/o female that was admitted for surgical consult on 11/16/16. The Pt lives independently with her in [place]. The Pt underwent surgery on 11/16, r/o appendicitis or pelvic inflammatory disease. SW met with the Pt and to discuss lack of PCP listed, Pt reports that she does not have a PCP and would like assistance seeing up [facility]. [facility], follow-up appointment scheduled for 11/24 at 8:30am. Clinic information provided to include directions and telephone number. SW will continue to follow. P: The Pt is not ready for discharge, surgery completed and biopsy scheduled for tomorrow. [facility] follow-up appointment scheduled for 11/24 at 8:30am. YADIRA Fuller Stained Glass Window Designer DARELL Cook
--- NOTE | 2016-11-17 15:47 | NUR ---
Shift summary Pt's diet advanced to general and she has been able to tolerate small meals so far, without nausea. She is able to walk to the bathroom with minimal assistance. Voiding without issues. Pt reports increased pain with physical activity. She is receiving 5mg of oxycodone q4 hours with adequate pain control, additionally given ibuprofen x1 during this shift. Vital signs are stable. Continue to monitor.
[2016-11-17 17:58] VITALS: BP 101/62; PULSE 100; RESP 16; O2SAT 97
[2016-11-17 22:15] VITALS: BP 105/63; PULSE 95; RESP 16; O2SAT 97
--- NOTE | 2016-11-18 03:59 | NUR ---
Pain/Abd Pt given prn Oxycodone 5mg (q4hrs) this shift per her request for abd pain 01/24. Pt states the oxycodone if helpful in managing her pain. Denies n/v and gi upset. Abd incision dressing x 3 sites; clean/dry/intact and no drainage noted at this time. Care ongoing.
[2016-11-18 05:21] VITALS: BP 108/62; PULSE 88; RESP 16; O2SAT 95
[2016-11-18 07:18] LABS: BASOPHILS % (AUTO) 0.1 % (0-3); EOSINOPHILS % (AUTO) 0.2 % (0-5); MONOCYTES % (AUTO) 11.4 % (4-12); Mean Corpuscular Hemoglobin 27.5 pg (27.0-35.0); Mean Corpuscular Volume 84.5 fL (81-100); NEUTROPHILS % (AUTO) 78.2 % (40-74); Platelet Count 247 bil/L (150-400)
[2016-11-18 08:30] VITALS: BP 99/63; PULSE 92; RESP 16; O2SAT 97
[2016-11-18] MEDS ORDERED: OXYC5TAB72 PO (10:13)
--- NOTE | 2016-11-18 10:13 | PCM.DISURG ---
Surgical Discharge Instruction Date of Service Nov 18, 2016 Dates of Hospitalization Date of Hospital Admission Nov 16, 2016 at 21:03 Providers Admitting Physician: Mack Galo MD Primary Care Physician: Nopcp Attending Physician: Mack Galo MD Discharge Diagnosis Discharge Diagnosis appendicitis, endometriosis and ovarian cysts Post Operative diagnosis laparoscopic appendectomy and peritoneal biopsies Diet Discharge Diet: No restrictions Activity Discharge Activity-General: No restrictions, Other (you may return to work as you feel up to [facility] you may need up to 3 weeks of time off or reduced duties) Dressing and Incisional Care Dressing Care: Allow Steri Stripes to fall off, Remove outer dressing after 24 hrs Hygiene: May shower Follow Up Plan Follow Up Plan Follow up in 1-3 weeks with [facility] regarding your appendectomy, follow up with Dr. Buchanan regarding the endometriosis and ovarian cysts Mack Galo MD Nov 18, 2016 10:13
--- NOTE | 2016-11-18 10:31 | CONS ---
[address] [address] CONSULTATION REPORT PATIENT: DARREN DIAZ : 1980 MR#: [id number] ADMIT: 11/16/2016 JOB ID: [id number] DATE OF SERVICE: 11/16/2016 I was called in for intraoperative consultation by Dr. Galo on November 16, 2016 and the following findings were noted intraoperatively: 1- Very large endometrioma affecting the entire right ovary ; had ruptured at the lower end and there were endometriosis implants everywhere in the pelvic and abdominal peritoneal surfaces including omental services, pelvic sidewalls, liver. The entire abdomen and pelvis were filled with dark red spots everywhere(could represent endometriosis implants or splash from the ruptured endometrioma. 2- Inspection of the left ovary showed two endometriomas as well with adjacent ovarian tissue looking like a simple cystic structure. 3-No free fluid was in the posterior cul-de-sac. 4- Normal appearing fallopian tubes bilaterally. 5- Smooth serosal surface of the uterus. 6- No adhesions were noted in the pelvis or in the abdomen. This morning, the patient's vital signs are 37.0 for temperature, pulse is 92, respirations are 16, blood pressure is 99/63, pulse ox is 97% on room air. Discussed the intraoperative findings with the patient in details postoperatively. Patient reports a 0, para zero, desires future fertility and she reports resolution of dysmenorrhea since her start of gluten free diet. She denies any other symptoms from her endometriosis. She had history of a prior ovarian cyst that caused some pain and this resolved a couple of years ago. LABORATORIES: This morning, H and H is 9.6 and 29.5. Platelets are 247. White blood count 14. ASSESSMENT AND PLAN: The patient will be discharged home by Dr. Galo. Discussed with the patient pathology of endometriosis and medical and surgical options for treatment. The couple desire future fertility. They would prefer medical treatment for now. Discussed Lupron and control pills. The patient will followup with myself in the office for further discussion of management options. All questions answered. ANIKAD
--- NOTE | 2016-11-18 11:37 | NUR ---
Discharge Pt A&O x 4. Steady on feet with a sba. Pt and understood all discharge instructions, follow up appointments that need to be made by them, and new medications to oyster picker. No questions by either patient or . IV d/c'd catheter intact. All belongings accounted for, pt rode in wc and taken out by UA, accompanying patient out.
--- NOTE | 2016-11-18 13:09 | PROG NOTE ---
[address] [address] PROGRESS NOTE PATIENT: DARREN DIAZ : 1980 MR#: [id number] ADMIT: 11/16/2016 JOB ID: [id number] DATE: 11/18/2016 SUBJECTIVE: Approximately 36 hours status post laparoscopic appendectomy. She remains afebrile. She is tolerating p.o. She received IV antibiotics for a full 24 hours after surgery. Her white count dropped down to 14 today from its zenith at 24.8. IMPRESSION AND PLAN: Doing well. She will be discharged home with oral pain medications after her conversation with Dr. Buchanan of DIRECTOR GLOBAL MARKET RESEARCH. As she did not have perforated appendicitis we will send her home on no antibiotics. I did talk to her regarding my concerns regarding her marked elevation of her white count and somewhat high of late postop infection. We did discuss symptoms of intra-abdominal abscess.
--- NOTE | 2016-11-18 13:19 | DIS ---
[address] [address] DISCHARGE SUMMARY PATIENT: DARREN DIAZ : 1980 MR#: [id number] ADMIT: 11/16/2016 JOB ID: [id number] DIS: 11/18/2016 DISCHARGE DIAGNOSIS: 1. Acute nonperforated appendicitis. 2. Bilateral ovarian cysts. 3. Endometrioma. 4. Endometriosis. OPERATIONS AND PROCEDURES: Laparoscopic appendectomy with intraoperative consultation from Dr. Buchanan, CATHODIC PROTECTION TECHNICIAN November 16. HOSPITAL COURSE: This is a healthy 36-year-old female who presented with signs and symptoms consistent with acute appendicitis but a very high white count of 24.8. Her appendiceal ultrasound was positive for appendicitis, but as well her pelvic ultrasound demonstrated findings consistent with a ruptured ovarian cyst and endometrioma. She underwent a CAT scan that demonstrated findings more consistent with simple cysts but clearly appendicitis and was taken to the operating room on the evening of November 16 where she underwent a laparoscopic appendectomy for what clearly appeared to be very bad, almost gangrenous appendicitis but without significant free fluid. As well, Dr. Buchanan from CATHODIC PROTECTION TECHNICIAN came into the OR and what we found was that the patient had signs of diffuse endometriosis in bilateral pelvic and lower quadrants, and in the right upper quadrant with minimal findings in the left upper quadrant. She had bilateral ovarian cysts, right greater than left. Based on our preoperative discussion, we simply went ahead with the appendectomy and postoperatively both myself and Dr. Buchanan had discussed issues regarding the ovarian cyst and the endometriosis. She has done well from her appendectomy, with her white count dropping down to 14 on postop day #2, and she will be discharged home today with no antibiotics, with 30 oxycodone. She will followup with [facility] regarding her appendectomy for a wound check and pathology review. There were biopsies taken of the peritoneal seeding as well and she will follow up with Dr. Buchanan of CATHODIC PROTECTION TECHNICIAN regarding her endometriosis and her ovarian cysts.
--- NOTE | 2016-11-21 15:43 | PATH ---
SURGICAL PATHOLOGY Attending Physician:Mack Galo MD CASE STATUS: Signed Out PATIENT NAME: DARREN DIAZ PID: [id number] : 1980 DATE COLLECTED:11/16/2016 00:00 SPECIMEN: 1: Appendix 2: Endometrium, Biopsy CLINICAL HISTORY: ABDOMINAL PAIN 1). APPENDIX 2). ENDOMETRIAL IMPLANTS FINAL DIAGNOSIS: 1. Appendix, Appendectomy: Acute suppurative appendicitis with microscopic perforation and serositis. No evidence of neoplasm. 2. Designated "Endometrial Implants", Biopsies: Multiple aggregates of hemosiderin-laden macrophages consistent with remote hemorrhage. No evidence of endometrial glands or stroma. No evidence of neoplasm. ICD10 K35.80 GROSS DESCRIPTION: The specimens are received in formalin, labeled with the patient's name, and sublabeled as the following: (1) appy; (2) endometrial implant. (1) The specimen is received in formalin, labeled with the patient's name, sublabeled as appendix, and consists of an intact appendix (length-7.5 cm, diameter-1.2 cm). The resection margin is received stapled. The serosa is johnson-brown smooth and shiny and partially covered in johnson flaky friable exudate. The lumen contains pale matta and yellow solid soft material. The wall is up to 0.2 cm thick. No nodules, masses or lesions are identified. Ink code: black-proximal. Section code: (A) appendix, provider relations representative. (2) The specimen consists of multiple fragments of a red-brown tissue (1.5 x 0.8 x 0.2 cm in aggregate). Section code: (2A) tissue. Specimen entirely submitted. 11/18/16 ICD-9 CODES: CPT CODES: 1: 01767 2: 37920 Electronically Signed Out Brittany Shelley MD [facility] [address], [place] [address] Technical component performed at [facility], [facility] [address], [place], [address]
== END 2016-11-18 11:40 | disposition home or self-care (01) | DRG 343 ==
LOC: SED 11:37 → SAS 20:34 → MOC 20:36
PROVIDERS: ADMIT Surgery; ATTEND Surgery
PROC: 0DBS4ZX (ICD-10-PCS; 2016-11-16)
PROC: 0DTJ4ZZ Resection of Appendix, Percutaneous Endoscopic Approach (ICD-10-PCS; principal; 2016-11-16 20:45)
DX: K35.80 Unspecified acute appendicitis (principal); N80.3 Endometriosis of pelvic peritoneum; N80.1 Endometriosis of ovary